=== PATIENT | female | born 1940 | race Caucasian/White ===

== ENCOUNTER → 2018-03-24 13:37 | Outpatient (CLI) | payer MEDICARE ==
[2013-02-12 08:31] VITALS: BMI 20.9
== END | disposition home or self-care (01) ==
LOC: D.RAD 13:37
DX: J44.9 Chronic obstructive pulmonary disease, unspecified (principal)

== ENCOUNTER → 2018-07-28 10:36 | Outpatient (CLI) | payer OTHER, MEDICAID ==
[2013-02-12 08:31] VITALS: BMI 20.9
== END | disposition home or self-care (01) ==
LOC: D.RAD 10:36
DX: R07.81 Pleurodynia (principal); V89.2XXA Person injured in unspecified motor-vehicle accident, traffic, initial encounter

== ENCOUNTER → 2018-09-07 14:59 | Outpatient (CLI) | payer OTHER, MEDICAID ==
[2013-02-12 08:31] VITALS: BMI 20.9
== END | disposition home or self-care (01) ==
LOC: D.CT 08-31 13:00
DX: R63.4 Abnormal weight loss (principal)

== ENCOUNTER → 2018-11-28 10:56 | Outpatient (CLI) | payer OTHER, MEDICAID ==
[2013-02-12 08:31] VITALS: BMI 20.9
== END | disposition home or self-care (01) ==
LOC: D.CT 11-24 14:00
DX: I65.23 Occlusion and stenosis of bilateral carotid arteries (principal)

== ENCOUNTER 2019-02-10 21:10 | Observation (INO) | payer OTHER, MEDICAID ==
[~2019-02-10] VITALS: Ht 157.5 cm; Wt 45.0 kg
[2019-02-10 21:23] VITALS: BP 123/68
[2019-02-10 21:39] LABS: BASOPHILS 0.2 % (0-2); EOSINOPHILS 1.2 % (0-7); HEMOGLOBIN 12.9 g/dL (12-16); IMMATURE GRANULOCYTES 0.5 % (0-5); LYMPHOCYTES 14.2 % (15-50); MCH 30.2 pg (26.0-34.0); MCHC 33.9 g/dL (31.0-37.0); MEAN PLATELET VOLUME 9.7 fL (7.4-10.4); MONOCYTES 7.4 % (2-11); NEUTROPHILS 76.5 % (40-80); PLATELET COUNT 234 10x3/uL (130-400); RBC 4.27 10x6/uL (4.00-5.40); RDW 12.8 % (11.5-14.5); WBC 10.4 10x3/uL (4.8-10.8)
[2019-02-10 21:44] LABS: APTT 27.5 SECONDS (22.8-39.4); INR 1.07 (0.85-1.17); PROTIME 13.4 SECONDS (11.6-15.0)
[2019-02-10 21:52] LABS: ALBUMIN 3.5 g/dL (3.4-5.0); ALKALINE PHOSPHATASE 106 U/L (46-116); ALT (SGPT) 14 U/L (10-68); BILIRUBIN - TOTAL 0.42 mg/dL (0.2-1.3); CALC OSMOLALITY 267 mosm/kg (275-300); CALCIUM 9.7 mg/dL (8.5-10.1); CARBON DIOXIDE 27.4 mmol/L (21.0-32.0); CHLORIDE - SERUM 100 mmol/L (98-107); CREATININE - SERUM 0.7 mg/dL (0.6-1.3); POTASSIUM - SERUM 3.6 mmol/L (3.5-5.1); PROTEIN - SERUM 6.6 g/dL (6.4-8.2); SODIUM 135 mmol/L (136-145); UREA NITROGEN 12 mg/dL (7-18); eGFR NON AFRICAN AMERICAN 86 mL/min (90-120)
[2019-02-10 21:57] LABS: GLUCOSE 56 mg/dL (74-106)
[2019-02-10 22:04] LABS: CKMB 4.3 U/L (0.0-3.6); CREATINE KINASE 165 UL (21-215); MAGNESIUM - SERUM 2.1 mg/dL (1.8-2.4)
[2019-02-10 22:05] LABS: TROPONIN-I < 0.017 ng/mL (0.000-0.060)
--- NOTE | 2019-02-11 00:04 | NUR ---
FSBS 114
[2019-02-11] MEDS ORDERED: BAYER CHEWABLE81 MG PO (01:03)
[2019-02-11 01:18] VITALS: BP 150/70; Ht 157.5 cm; Wt 45.0 kg
--- NOTE | 2019-02-11 01:25 | NUR ---
RECIEVED REPORT FROM PAULO MENA IN ER. ARRIVED TO FLOOR AT 0020 IN W/C ACCOMPANIED BY STAFF. TRANSFERED SELF TO BED. ALERT AND ORIENTED X4. UP AD ANGELINA TO B/R. C/O BEING VERY TIRED. DENIES ANY PAIN OR NEEDS. TELEMETRY IN PLACE. COURTNEY AGUAYOO.
[2019-02-11 03:33] LABS: BASOPHILS 0.3 % (0-2); EOSINOPHILS 1.7 % (0-7); HEMATOCRIT 36.5 % (36.0-48.0); HEMOGLOBIN 12.4 g/dL (12-16); IMMATURE GRANULOCYTES 0.5 % (0-5); LYMPHOCYTES 20.5 % (15-50); MCV 88.2 fL (80.0-100.0); MEAN PLATELET VOLUME 9.9 fL (7.4-10.4); MONOCYTES 6.8 % (2-11); NEUTROPHILS 70.2 % (40-80); PLATELET COUNT 218 10x3/uL (130-400); RBC 4.14 10x6/uL (4.00-5.40); RDW 12.7 % (11.5-14.5); WBC 7.8 10x3/uL (4.8-10.8)
[2019-02-11 03:56] LABS: ALKALINE PHOSPHATASE 85 U/L (46-116); ALT (SGPT) 13 U/L (10-68); CALC OSMOLALITY 274 mosm/kg (275-300); CALCIUM 9.5 mg/dL (8.5-10.1); CARBON DIOXIDE 24.2 mmol/L (21.0-32.0); CHLORIDE - SERUM 105 mmol/L (98-107); CKMB 3.2 U/L (0.0-3.6); CREATINE KINASE 114 UL (21-215); CREATININE - SERUM 0.6 mg/dL (0.6-1.3); POTASSIUM - SERUM 3.7 mmol/L (3.5-5.1); PROTEIN - SERUM 5.9 g/dL (6.4-8.2); SODIUM 138 mmol/L (136-145); TROPONIN-I 0.021 ng/mL (0.000-0.060); UREA NITROGEN 9 mg/dL (7-18); eGFR NON AFRICAN AMERICAN > 90 mL/min (90-120)
[2019-02-11 03:59] LABS: GLUCOSE 95 mg/dL (74-106)
[2019-02-11 05:56] VITALS: BP 133/65
--- NOTE | 2019-02-11 07:30 | NUR ---
RECEIVED PT AMBULATING IN [place]WAYS LOOKING FOR A PHONE BOOK WANTING TO GO HOME ASSISTED BACK TO ROOM GOING TO WAIT FOR DAUGHTER TO COME SEE HER
[2019-02-11 09:13] VITALS: BP 143/48
[2019-02-11] MEDS ORDERED: COZAAR50 MG (10:08)
[2019-02-11] MEDS ORDERED: SYMBICORT 16010.2 GM INH (10:09)
[2019-02-11] MEDS ORDERED: MELATONIN 3 MG1 TAB (10:10)
[2019-02-11] MEDS ORDERED: ADVIL200 MG PO (10:10)
[2019-02-11] MEDS ORDERED: PROBIOTIC250 MG PO (10:11)
[2019-02-11] MEDS ORDERED: NITROSTAT0.4 MG SL (10:17)
--- NOTE | 2019-02-11 12:00 | NUR ---
REVIEWED DISCHARGE INSTRUCTIONSWITH PT AND DAUGHTERS ALL STATE UNDERSTANDING COPY GIVEN DCD SALINE LOCK LAC WITH IV CATHETER INTACT SITE FREE OF REDNESS OR EDEMA NOTED PT DCD TO HOME LEFT UNIT VIA W/C WITH ALL PERSONAL BELONGINGS IN STABLE CONDITION
--- NOTE | 2019-02-12 09:21 | MORECARE ---
CASE MANAGEMENT DISCHARGE SUMMARY PATIENT: GIDEON SHOEMAKER UNIT: [id number] ADM DATE: 02/10/19 AGE: 78 : 40 SEX: F ROOM/BED: D.2115 AUTHOR: GIOVANNA HAMMER PHYSICIAN: REFERRING PHYSICIAN: FABIOLA CARABALLO MD DATE OF SERVICE: 02/12/19 Discharge Plan Patient Name: GIDEON SHOEMAKER Facility: [facility]:[place] : 1940 Planned Disposition: Home Anticipated Discharge Date: 02/11/19 Discharge Date: 02/11/2019 Expected LOS: 1 Initial Reviewer: [email or web address] Initial Review Date: 02/12/2019 Generated: 02/12/19 10:21 am Patient Name: GIDEON SHOEMAKER Page [id number] at 0921 All edits/amendments must be made on the electronic document DICTATION DATE: 02/12/19919 FARM OWNER OPERATOR: JADON 02/12/19919 RPT#: [id number] DC DATE:02/11/19 STATUS: DIS IN [facility] [address] [place] [address] END OF REPORT
--- NOTE | 2019-02-13 13:13 | DS ---
PATIENT:GIDEON SHOEMAKER :40 MEDICAL RECORD: [id number] DISCHARGE SUMMARY ADMISSION DATE: 02/10/19 DISCHARGE DATE: 02/11/19 PROBLEM LIST: 1. Angina. BRIEF HISTORY AND HOSPITAL COURSE: The patient had an episode of angina under stress. She has had no recent increase in her anginal pattern. Unfortunately was out of nitroglycerin. Serial ECGs and enzymes showed no evidence for acute ischemia and was discharged home with her usual medications. Followup will be with a regular scheduled clinic office visit. TRANSINT:[id number] Voice Confirmation ID: [id number] DOCUMENT ID: [id number] FABIOLA CARABALLO MD at 1313 CC: [id number] DICTATION DATE: 02/11/19919 SURGICAL ASST: 02/12/19 0042 DIS IN 02/11/19 [id number] [place] [address]
--- NOTE | 2019-02-13 13:13 | HP ---
PATIENT: GIDEON SHOEMAKER MEDICAL RECORD: [id number] ACCOUNT: [id number] LOCATION:[address] : 40 ADMISSION DATE: 02/10/19 PCP: No PCP HISTORY AND PHYSICAL EXAMINATION HISTORY OF PRESENT ILLNESS: A 78-year-old female followed in our office with a history of coronary artery disease. She describes a very chronic stable anginal pattern. Yesterday was trying to change her medications over from [facility] to a local pharmacy. This was not easily accomplished and had onset of angina. Unfortunately, one of the medications she was attempting to be transferred was her nitroglycerin, she had none and presented to the ER. Enzymes are negative. She reports no increase in her anginal pattern over the past several months actually. Able to usually do light housework, heavy housework occasionally requires nitroglycerin. PAST MEDICAL HISTORY: Includes history of coronary artery disease as described above and dyslipidemia. ALLERGIES: AMOXICILLIN. MEDICATIONS: Aspirin 81 mg p.o. daily. SOCIAL HISTORY: Nonsmoker, nondrinker. Lives by self. Easily takes care of all her ADLs. PHYSICAL EXAMINATION: GENERAL: Pleasant female, appears stated age, in no acute distress. VITAL SIGNS: Blood pressure 143/48, pulse 83 and regular. HEENT: Normocephalic, atraumatic. NECK: No JVD or bruit. HEART: Regular. LUNGS: Lung baires clear. ABDOMEN: Soft, nontender. EXTREMITIES: Pulses 2+. No edema. NEUROLOGIC: Grossly intact. DIAGNOSTIC DATA: ECG without acute change. IMPRESSION: We will plan for serial cardiac enzymes. Further recommendations based on the above. TRANSINT:[id number] Voice Confirmation ID: [id number] DOCUMENT ID: [id number] FABIOLA CARABALLO MD at 1313 CC: [id number] DICTATION DATE: 02/11/19918 CONTROL INTEGRATION ENGINEER: 02/11/19 1413 DIS IN 02/11/19 [address] [place] [address]
== END 2019-02-11 12:00 | disposition home or self-care (01) ==
LOC: D.ER 21:10 → OBSVTIME 23:27 → D.M2 23:27
PROVIDERS: Family Medicine; ADMIT Internal Medicine Interventional Cardiology; ATTEND Internal Medicine Interventional Cardiology
DX: I25.119 Atherosclerotic heart disease of native coronary artery with unspecified angina pectoris (principal); E78.5 Hyperlipidemia, unspecified

== ENCOUNTER 2019-03-21 10:53 | Outpatient (CLI) | payer OTHER, MEDICAID ==
[~2019-03-21] VITALS: Ht 157.5 cm; Wt 45.0 kg
--- NOTE | ~2019-03-21 | HEMODYNAMI ---
PATIENT:GIDEON SHOEMAKER MEDICAL RECORD: [id number] : 40 LOCATION:[facility] ADMISSION DATE: 03/21/19 Generatedon:03/21/201914:30 Patient name: GIDEON SHOEMAKER Patient #: [id number] SSN: : 1940 Date of study: 03/21/2019 Page: Of Hemodynamic Procedure Report Patient Data Patient Demographics Procedure consent was obtained First Name: GIDEON Gender: Female Last Name: SAHARA : 1940 Middle Initial: M Age: 78 year(s) Patient #: [id number] Race: Unknown Additional ID: [id number] Contact details Address: [address] [place] [address] State: [place] City: [facility] Zip code: [address] Past Medical History Allergies: No known allergies Admission Admission Data Admission Date: 03/21/2019 Admission Time: 10:53 Procedure Procedure Types Cath Procedure Diagnostic Procedure LHC LHC w/Coronaries w/Grafts Sedation Charges Moderate Sedation up to 45 minutes PCI Procedure Coronary Stent Coronary Stent Initial Procedure Description Procedure Date Procedure Date: 03/21/2019 Procedure Start Time: 13:36 Procedure End Time: 14:29 Procedure Staff Name Function Dejon Cardona MD Performing Physician Unique Mcmullen RT Monitor Faye Albarran RT Scrub Sylvester Mcintosh RN Nurse Procedure Data Cath Procedure Fluoroscopy Diagnostic fluoroscopy Total fluoroscopy Time: time: 10.2 min 10.2 min Diagnostic fluoroscopy Total fluoroscopy dose: 378 dose: 378 mGy mGy Contrast Material Contrast Material Type Amount (ml) Isovue 300 118 Entry Location Entry Primary Successful Side Size Upsize Upsize Entry Closure Succes sful Closure Location (Fr) 1 (Fr) 2 (Fr) Remarks Device Remarks Femoral Right 5 Fr Exoseal artery Femoral Left 5 Fr 6 Fr 6 Fr artery Long Short Estimated blood loss: 10 ml Diagnostic catheters Device Type Used For End Catheter Placement MULTIPACK 3DRC 5Fr Procedure catheter MULTIPACK JL 4.0 5Fr Left Coronary catheter Angiography MULTIPACK 3DRC 5Fr Right Coronary catheter Angiography MULTIPACK 3DRC 5Fr Internal mammary catheter arteriography MULTIPACK Pigtail 5 Fr LV Angiography catheter Procedure Complications No complications Procedure Medications Medication Administration Route Dosage Oxygen 6 l/min Lidocaine 2% added to field 20 Heparin Flush Bag added to field 2 bags (1000units/500ml NS) 0.9% NaCl I.V. 100 ml/hr Versed I.V. 1 mg Fentanyl I.V. 50 mcg Versed I.V. 1 mg Fentanyl I.V. 50 mcg Fentanyl I.V. 50 mcg Heparin Bolus I.V. 4000 units Integrilin (Bolus I.V. 4 ml 2mg/ml) Lopressor I.V. 5 mg Fentanyl I.V. 50 mcg Plavix P.O. 600 mg Hemodynamics Rest Heart Rate: 71 (bpm) Pressure Samples Time Site Value (mmHg) Purpose Heart Use Rate(bpm) 13:56 LV 210/132,8 EDP 118 Gradients Valve Time Site Site Mean SEP/DFP Peak To Heart Use 1 2 (mmHg) (sec/min) Peak Rate (mmHg) (bpm) Aortic 13:57 LV AO 78 Snapshots Pre Cath Intra NCS Post Cath Vital Signs Time Heart Resp SPO2 etCO2 NIBP (mmHg) Rhythm Pain Sedation Rate (ipm) (%) (mmHg) Status Level (bpm) 13:30:41 69 19 99 0 191/80(141) NSR 0 (11) 10(A) , No pain 13:35:07 72 14 98 0 178/82(140) NSR 0 (11) 10(A) , No pain 13:39:29 70 19 100 0 169/78(125) NSR 0 (11) 10(A) , No pain 13:43:49 74 14 95 0 171/85(129) NSR 0 (11) 9(A) , No pain 13:48:14 72 30 100 0 175/79(131) NSR 0 (11) 9(A) , No pain 13:52:36 71 19 100 0 175/79(135) NSR 0 (11) 9(A) , No pain 13:57:00 74 14 100 0 146/77(115) NSR 0 (11) 9(A) , No pain 14:02:17 71 18 100 0 155/63(111) NSR 0 (11) 9(A) , No pain 14:06:30 92 12 99 0 146/101(137) NSR 0 (11) 9(A) , No pain 14:10:39 80 15 100 0 165/108(149) NSR 0 (11) 9(A) , No pain 14:15:57 66 18 99 0 182/78(138) NSR 0 (11) 10(A) , No pain 14:20:23 66 14 98 0 169/78(126) NSR 0 (11) 10(A) , No pain 14:24:45 65 10 0 164/78(139) NSR 0 (11) 10(A) , No pain 14:29:09 63 21 0 177/75(140) NSR 0 (11) 10(A) , No pain Medications Time Medication Route Dose Verified Delivered Reason Notes Effectiveness by by 13:34:05 Oxygen simple 6 Dejon Buffie used for pt mask l/min [facility] Ryan Mcintosh RN procedure requested MD mask instead of cannula 13:34:46 Lidocaine 2% added 20ml Dejon Dejon for local to vial [facility] anesthetic field MD GORDON 13:34:57 Heparin Flush added 2 Dejon Dejon used for Bag to bags [facility] procedure (1000units/500ml field MD GORDON NS) 13:35:03 0.9% NaCl I.V. 100 Dejon Buffie Per physician ml/hr [facility] Ryan Mcintosh RN, MD 13:35:16 Versed I.V. 1 mg Dejon Buffie for sedation [facility] Ryan Mcintosh RN, MD 13:35:23 Fentanyl I.V. 50 Dejon Buffie for sedation mcg [facility] Ryan Mcintosh RN, MD 13:45:20 Versed I.V. 1 mg Dejon Buffie for sedation [facility] Ryan Mcintosh RN, MD 13:45:24 Fentanyl I.V. 50 Dejon Buffie for sedation mcg [facility] Ryan Mcintosh RN, MD 13:51:33 Fentanyl I.V. 50 Dejon Buffie for sedation mcg [facility] Ryan Mcintosh RN, MD 13:59:20 Heparin Bolus I.V. 4000 Dejon Buffie for verifi ed units [facility] Ryan Mcintosh RN anticoagulation with dr MD morales 13:59:28 Integrilin I.V. 4 ml Dejon Buffie for wasted 6 (Bolus 2mg/ml) St Ryan Mcintosh RN antiplatelet ml of MD therapy vial 14:04:38 Fentanyl I.V. 50 Dejon Buffie for sedation [facility] St Ryan Mcintosh RN, MD 14:08:38 Lopressor I.V. 5 mg Dejon Phan Per physician [facility] Ryan Mcintosh RN, MD 14:19:18 Plavix P.O. 600 Dejon [address]an for mg [facility] Ryan Mcintosh RN antiplatelet MD therapy Procedure Log Time Note 13:12:06 Sylvester Mcintosh RN sent for patient. Start room use. 13:12:07 Time tracking: Regular hours (M-F 7:00 - 5:00) 13:12:14 Plan of Care:Hemodynamics will remain stable., Cardiac rhythm will remain stable., Comfort level will be maintained., Respiratory function will remain adequate., Patient/ family verbilizes understanding of procedure., Procedure tolerated without complication., Recovers from procedure without complications.. 13:19:15 Patient received from Pre/Post Procedure Room to CCL 1 Alert and oriented. Tansferred to table in Supine position. 13:19:16 Warm blankets applied, and muriel hugger turned on for patient comfort. 13:19:17 Correct patient and procedure confirmed by team. 13:19:18 Signed procedure consent form obtained from patient. 13:19:18 ECG and BP/O2 sat monitors applied to patient. 13:19:19 Full Disclosure recording started 13:28:28 Vital chart was started 13:28:34 Rhythm: sinus rhythm 13:29:12 H&P Date Dictated: 03/05/2019 Within 30 days and on chart., H&P Addendum completed by physician on day of procedure. (MUST COMPLETE FOR ALL OUTPATIENTS). 13:29:14 Pre-procedure instructions explained to patient. 13:29:14 Pre-op teaching completed and patient verbalized understanding. 13:29:16 Family in patients room. 13:29:21 Patient NPO since Midnight. 13:29:28 Patient allergic to No known allergies 13:29:30 Is the patient allergic to Iodine/contrast media? No. 13:29:37 Patient diabetic? No. 13:29:43 Previous problem with sedation/anesthesia? No ? 13:29:44 Snore? No 13:29:45 Sleep apnea? No 13:29:47 Deviated septum? No 13:29:47 Opens mouth fully? Yes 13:29:48 Sticks out tongue? Yes 13:29:52 Airway obstruction? Yes COPD 13:29:55 Dentures? Yes In 13:29:59 Pre procedure: right dorsailis pedis pulse 2+ Normal; easily identifiable; not easily obliterated 13:30:01 Patient pain scale 0/10 ?. 13:30:08 IV patent on arrival in right forearm with 0.9% NaCl at [facility]. 13:30:10 Lab results completed and on chart. 13:30:13 Right groin area was prepped with chlora-prep and draped in sterile fashion 13:30:14 Alarms reviewed by R. N. 13:30:14 Sharps counted by scrub and verified by R.N. 13:30:17 Use device set Femoral Dx 13:30:18 ACIST Syringe (36191) opened to sterile field. 13:30:19 Bag Decanter (2002S) opened to sterile field. 13:30:19 Medline Cath Pack ([id number]) opened to sterile field. 13:30:20 DIAGNOSTIC WIRE .035 260cm J wire (552716) opened to sterile field. 13:30:21 ACIST Hand Control (34920) opened to sterile field. 13:30:22 ACIST Manifold (20768) opened to sterile field. 13:30:22 DIAGNOSTIC Multipack 5Fr catheter set ([id number]) opened to sterile field. 13:30:23 Tegaderm 4 x 4 (1626W) opened to sterile field. 13:30:24 SHEATH 5FR [place] (KEP481) opened to sterile field. 13:30:29 Final Timeout: patient, procedure, and site verified with staff and physician. All members of the team are in agreement. 13:30:31 Right groin site verified by team. 13:30:34 Maximum allowable Isovue 300 dose 300ml. Physician notified. (300ml for normal creatinines. For patients with creatinine of 1.7 or higher multiply weight(kg) x 5 divided by creatinine.) 13:30:38 Fire Safety Assessment: A--An alcohol-based skin anteseptic being used preoperatively., C--Open oxygen or nitrous oxide is being used., D--An ESU, laser, or fiber-optic light is being used. 13:30:41 Physical assessment completed. ASA score P 2 - A patient with mild systemic disease as per Dejon Cardona MD. 13:30:44 Sedation plan: IV Moderate Sedation Medication:Versed, Fentanyl 13:34:05 Oxygen 6 l/min simple mask was administered by Sylvester Mcintosh RN; used for procedure; pt requested mask instead of cannula 13:34:15 Zero performed for pressure channel P1 13:34:22 Baseline sample Acquired. 13:34:46 Lidocaine 2% 20ml vial added to field was administered by Dejon Cardona MD; for local anesthetic; 13:34:57 Heparin Flush Bag (1000units/500ml NS) 2 bags added to field was administered by Dejon Cardona MD; used for procedure; 13:35:03 0.9% NaCl 100 ml/hr I.V. was administered by Sylvester Mcintosh RN; Per physician; 13:35:16 Versed 1 mg I.V. was administered by Sylvester Mcintosh RN; for sedation; 13:35:23 Fentanyl 50 mcg I.V. was administered by Sylvester Mcintosh RN; for sedation; 13:36:13 Procedure started. 13:36:16 Local anesthetic to right femoral artery with Lidocaine 2% by Dejon Cardona MD.INITIAL ACCESS ONLY 13:36:57 A 5 Fr sheath was inserted into the Right Femoral artery 13:37:44 GLIDE WIRE Super Stiff Angled 260cm (TL3058) opened to sterile field. 13:38:17 exchange glide wire advanced. 13:38:29 A MULTIPACK 3DRC 5Fr catheter was advanced over the wire and used for Procedure. CATHETER REMOVED; UNABLE TO ADVANCE PAST RT ILIAC 13:40:25 Wire removed. 13:41:14 Left groin area was prepped with chlora-prep and draped in sterile fashion 13:41:19 Pre procedure: left dorsailis pedis pulse 2+ Normal; easily identifiable; not easily obliterated 13:43:06 Local anesthetic to left femerol artery with Lidocaine 2% by Dejon Cardona MD.ADDITIONAL ACCESS 13:45:20 Versed 1 mg I.V. was administered by Sylvester Mcintosh RN; for sedation; 13:45:24 Fentanyl 50 mcg I.V. was administered by Sylvester Mcintosh RN; for sedation; 13:46:49 A 5 Fr sheath was inserted into the Left Femoral artery 13:48:21 A MULTIPACK JL 4.0 5Fr catheter was advanced over the wire and used for Left Coronary Angiography. 13:49:42 Catheter removed. 13:50:45 A MULTIPACK 3DRC 5Fr catheter was advanced over the wire and used for Right Coronary Angiography. 13:51:33 Fentanyl 50 mcg I.V. was administered by Sylvester Mcintosh RN; for sedation; 13:52:40 A MULTIPACK 3DRC 5Fr catheter was advanced over the wire and used for Internal mammary arteriography. TO LAD--OCCLUDED 13:54:20 Catheter removed. 13:55:00 A MULTIPACK Pigtail 5 Fr catheter was advanced over the wire and used for LV Angiography. 13:56:28 LV gram done using CAMPOS 13:56:33 Injector settings: Ml/sec: 5, Volume: 15, 13:56:38 LV hemodynamics recorded. 13:56:55 EF : 50 % 13:57:21 Catheter removed. 13:57:31 Sheath upsized to a 6 Fr Long. 13:57:34 Use device set THORNTON PCI 13:57:37 SHEATH 6FR [place] (FWN630) opened to sterile field. 13:57:43 INFLATOR Merit BasixCompak (TV0162) opened to sterile field. 13:57:47 GUIDE 6FR XBLAD 3.5 catheter ([id number]) opened to sterile field. 13:57:49 WHISPER 300cm guide wire ([id number]) opened to sterile field. 13:59:20 Heparin Bolus 4000 units I.V. was administered by Sylvester Mcintosh RN; for anticoagulation; verified with dr morales 13:59:28 Integrilin (Bolus 2mg/ml) 4 ml I.V. was administered by Sylvester Mcintosh RN; for antiplatelet therapy; wasted 6 ml of vial 14:00:17 6 Fr XBLAD 3.5 guide catheter was inserted over the wire 14:03:39 WHISPER wire advanced. 14:04:38 Fentanyl 50 mcg I.V. was administered by Sylvester Mcintosh RN; for sedation; 14:04:48 Inflate balloon Inflation number: 1 A EMERGE OTW 2.5 x 12 balloon ([id number]) was prepped and advanced across the LMCA, then inflated to 14 BINH for 0:24 (min:sec). 14:05:26 Inflation number: 2 The EMERGE OTW 2.5 x 12 balloon ([id number]) was reinflated across the LMCA, to 14 BINH for 0:25 (min:sec). 14:06:02 Inflation number: 3 The EMERGE OTW 2.5 x 12 balloon ([id number]) was reinflated across the LMCA, to 14 BINH for 0:22 (min:sec). 14:06:41 Balloon removed over the wire. 14:08:38 Lopressor 5 mg I.V. was administered by Sylvester Mcintosh RN; Per physician; 14:10:02 Place stent Inflation Number: 4 A COBRA RX 3.0 X 15 Stent was prepped and advanced across the LMCA. The stent was deployed at 14 BINH for 0:30 (min:sec). 14:10:41 Stent catheter was removed intact over wire. 14:10:43 Wire removed. 14:10:44 Guide catheter removed. 14:10:48 EXOSEAL 6Fr (EX600) opened to sterile field. 14:10:59 Sheath upsized to a 6 Fr Short. 14:11:39 Sheath removed intact; hemostasis achieved with Exoseal to the Right Femoral artery. 14:11:41 Procedure ended.(Physican Out) 14:11:48 EXOSEAL 5Fr (EX500) opened to sterile field. 14:19:18 Plavix 600 mg P.O. was administered by Sylvesetr Mcintosh RN; for antiplatelet therapy; 14:27:05 Fluoroscopy time 10.20 minutes. 14:27:09 Flurop Dose total: 378 14:27:09 Fluoroscopy dose: 378 mGy 14:27:13 Contrast amount:Isovue 300 118ml. 14:27:16 Sharps counted by scrub and verified by R.N. 14:27:18 Insertion/operative site no bleeding no hematoma. 14:27:21 Post-op/insertion site Right Femoral artery dressed using a 4 x 4 and Tegaderm. 14:27:27 Post right femoral artery:stable, clean and dry 14:27:34 Post Procedure Pulses reassessed and unchanged 14:27:36 Post-procedure physical assessment completed. ASA score P 2 - A patient with mild systemic disease as per Dejon Cardona MD. 14:27:38 Post procedure rhythm: unchanged. 14:27:42 Post-op/insertion site Left Femoral artery dressed using a 4 x 4 and Tegaderm. 14:27:45 Post left femerol artery:stable, clean and dry 14:27:52 Estimated blood loss: 10 ml 14:27:54 Post procedure instruction explained to patient.Patient verbalizes understanding. 14:27:54 Patient needs reinforcement of post procedure teaching. 14:27:55 Procedure and supply charges have been captured, reviewed, submitted and are correct. 14:28:02 Procedure Complication : No complications 14:28:04 See physician's report for complete and final results. 14:28:27 Report given to Pre/Post Procedure Room. 14:28:29 Patient transfered to Pre/Post Procedure Room with Stretcher. 14:28:53 Procedure type changed to Cath procedure, Diagnostic procedure, LHC, LHC w/Coronaries w/Grafts, Sedation Charges, Moderate Sedation up to 45 minutes, PCI procedure, Coronary Stent, Coronary Stent Initial 14:29:32 Vital chart was stopped 14:29:35 Procedure ended. 14:29:35 Full Disclosure recording stopped 14:29:55 End room use (Document Last) Intervention Summary Intervention Notes Time ActionType Lesion and Equipment Action# Pressure Duration Attributes Used 14:04:48 Inflate LMCA EMERGE OTW 1 14 00:24 balloon 2.5 x 12 balloon ([id number]) 14:05:26 Reinflate LMCA EMERGE OTW 2 14 00:25 balloon 2.5 x 12 balloon ([id number]) 14:06:02 Reinflate LMCA EMERGE OTW 3 14 00:22 balloon 2.5 x 12 balloon ([id number]) 14:10:02 Place stent LMCA COBRA RX 3.0 4 14 00:30 X 15 Stent Device Usage Item Name Manufacture Quantity Catalog Number [facility] Minimal Lot# / Charge Number Stock Stock Serial# Code ACIST Syringe Acist 1 06600 463164 902776 213791 20 (27740) Medical Systems Inc Bag Decanter Microtek 1 622479 82294 604504 5 () Medical Inc. Medline Cath Medline 1 [id number] 879179 02869 475221 5 Pack ([id number]) DIAGNOSTIC [facility] [place] 1 005959 972266 666137 003150 30 WIRE .035 260cm J wire (351171) ACIST Hand Acist 1 81675 024146 720384 996401 5 Control Medical (93342) Systems Inc ACIST Manifold Acist 1 46156 428518 782970 022049 5 (32206) Medical Systems Inc DIAGNOSTIC Cardinal 1 OW5198 453718 04555 487390 30 Multipack 5Fr Health catheter set (QN4767) Tegaderm 4 x 4 3M 1 1626W 951590 134997 376787 5 (1626W) SHEATH 5FR Terumo 1 WIU584 803354 926180 891895 5 [place] (XCE305) GLIDE WIRE Terumo 1 KV0033 425835 366079 859582 5 Super Stiff Angled 260cm (HI1940) MULTIPACK 3DRC Cardinal 1 608213 5 5Fr catheter Health MULTIPACK JL Cardinal 1 872374 5 4.0 5Fr Health catheter MULTIPACK Cardinal 1 633644 5 Pigtail 5 Fr Health catheter SHEATH 6FR Terumo 1 OAJ422 598577 479163 554391 40 [place] (FQA021) INFLATOR Merit Merit 1 XB2325 913292 306804 639819 15 [facility] (ZG0506) GUIDE 6FR Cardinal 1 [id number] 465733 467859 315636 10 XBLAD 3.5 Health catheter (32175179) WHISPER 300cm Morse 1 [id number] 376472 862451 202029 5 guide wire Vascular ([id number]) EMERGE OTW 2.5 Lapwai 1 [id number] 839219 744704 036204 5 [id number] x 12 balloon Scientific ([id number]) COBRA RX 3.0 X Celonova 1 032-77-95987 697671 869833316 293254 3 [id number] 15 stent Biosciences ([id number]) EXOSEAL 6Fr Cardinal 1 EX600 261250 499566 004423 10 (EX600) Health EXOSEAL 5Fr Cardinal 1 EX500 041147 577992 530207 10 (EX500) Health Signature Audit [place] Stage Time Signature Unsigned Intra-Procedure 03/21/2019 Unique 2:30:12 PM Counts RT(R) Signatures Monitor : Unique Signature : Counts RT Date : Time : [facility] [address] [place] [address]
--- NOTE | ~2019-03-21 | OP ---
PATIENT NAME: GIDEON SHOEMAKER MEDICAL RECORD: [id number] :40 LOCATION:D.CAT ADMISSION DATE: SURGEON: FABIOLA CARABALLO MD DATE OF OPERATION: 03/21/2019 PROCEDURE: Left heart catheterization, selective coronary angiography, right femoral artery approach. CATHETERS: A 5-Comoran sheath, 5/4 left and right Katie, 5/4 pig. The procedure was well tolerated. The patient was returned to the hollis. Sheath was removed. I proceeded immediately to TOLL TESTBOARD WORKER and stenting of the left main. FINDINGS: Left ventriculography in 30-degree CAMPOS view: Normal wall motion. Normal systolic function. CORONARY ANATOMY: LEFT MAIN: Left main tapers to about 90% stenosis. LAD: LAD is free of disease. CIRCUMFLEX: It has about 80% stenosis that is well grafted. RIGHT CORONARY ARTERY: Totally occluded. Fills via left to right collaterals. SAPHENOUS VEIN GRAFT TO CIRCUMFLEX: Widely patent and free of disease with a runoff distally. CUNHA TO LAD: Atretic. IMPRESSION: intervention to left main momentarily. DESCRIPTION OF PROCEDURE: A 5-Comoran sheath was exchanged for a long 6-Comoran sheath. XB LAD guiding catheter provided excellent guide catheter support followed by 300 cm Whisper wire was placed across 90% stenosis of left main down this portion of the vessel. Predeployment balloon used was a 2.5 Webb up to 14 atmospheres. The stent deployed was a 3.0 x 15 mm Cobra stent. Final angiography shows no residual. ANURADHA flow was 3 throughout the procedure. Heparin and Integrilin were used during the case. Plavix was loaded in the lab. Sheath was closed with ExoSeal device. TRANSINT:[id number] Voice Confirmation ID: [id number] DOCUMENT ID: [id number] FABIOLA CARABALLO MD CC: [id number] DICTATION DATE: 03/21/19 142 BAR MANAGER: 03/21/19 1824 DEP CLI 03/21/19 [facility] [address] [place] [address]
[~2019-03-21 10:53] MED LIST: ADVIL200 MG PO; BAYER CHEWABLE81 MG PO; COZAAR50 MG; MELATONIN 3 MG1 TAB; NITROSTAT0.4 MG SL; PROBIOTIC250 MG PO; SYMBICORT 16010.2 GM INH
[2019-03-21] MEDS ORDERED: ALBUTEROL SULF8.5 GM INH (11:12)
[2019-03-21 11:22] VITALS: BP 180/74; Ht 157.5 cm; Wt 45.0 kg
[2019-03-21 11:39] LABS: BASOPHILS 0.2 % (0-2); EOSINOPHILS 0.8 % (0-7); HEMATOCRIT 41.1 % (36.0-48.0); HEMOGLOBIN 14.2 g/dL (12-16); IMMATURE GRANULOCYTES 0.3 % (0-5); MCH 30.7 pg (26.0-34.0); MCHC 34.5 g/dL (31.0-37.0); MEAN PLATELET VOLUME 9.7 fL (7.4-10.4); MONOCYTES 8.1 % (2-11); NEUTROPHILS 72.6 % (40-80); PLATELET COUNT 242 10x3/uL (130-400); RBC 4.62 10x6/uL (4.00-5.40); RDW 12.4 % (11.5-14.5); WBC 6.1 10x3/uL (4.8-10.8)
[2019-03-21 12:22] LABS: CALC OSMOLALITY 263 mosm/kg (275-300); CARBON DIOXIDE 23.2 mmol/L (21.0-32.0); CHLORIDE - SERUM 100 mmol/L (98-107); CREATININE - SERUM 0.7 mg/dL (0.6-1.3); GLUCOSE 96 mg/dL (74-106); POTASSIUM - SERUM 4.2 mmol/L (3.5-5.1); SODIUM 133 mmol/L (136-145); UREA NITROGEN 7 mg/dL (7-18); eGFR NON AFRICAN AMERICAN 86 mL/min (90-120)
[2019-03-21] MEDS ORDERED: PLAVIX75 MG PO (14:30)
--- NOTE | 2019-03-21 14:52 | NUR ---
RECIEVED TO ROOM VIA STRETCHER FROM CUSTOMER CARE ASSISTANT WITH BILATERAL GROINS CDI NO BLEEDING OR HEMATOMA. PATIENT CONNECTED TO MONITOR FOR OBSERVATION WITH HR67 BP 180/78. PATIENT COMPLAINS OF NAUSEA WITH 4 MG ZOFRAN GIVEN IV.
--- NOTE | 2019-03-21 15:01 | NUR ---
BILATERAL GROINS REMAIN CDI WITH HR 62 BP 180/78 NAUSEA IS DENIED INSTRUCTED PATIENT TO KEEP HEAD FLAT ON PILLOW WITH LEGS STRAIGHT
--- NOTE | 2019-03-21 15:13 | NUR ---
PATIENT CONTINUES TO REST WITH BILATERAL GROINS CDI NO BLEEDING. CHEST PAIN AND NAUSEA ARE DENIED. FAMILY IS PRESENT AT BEDSIDE
--- NOTE | 2019-03-21 15:20 | NUR ---
PATIENT VOIDS 300 CC CLEAR YELLOW URINE TO COLLECTION SHARLA CARE PROVIDED BILATERAL GROINS ARE CDI
--- NOTE | 2019-03-21 15:31 | NUR ---
CHEST PAIN IS DENIED. PATIENT TOLERATING SIPS OF COFFEE WITH ASSISTANCE FROM DAUGHTER. BILATERAL GROINS ARE CDI
--- NOTE | 2019-03-21 15:49 | NUR ---
BILATERAL GROINS REMAINS CDI AND SOFT TO PALPATE. WITH CHEST PAIN DENIED.
--- NOTE | 2019-03-21 16:30 | NUR ---
BILATERAL GROIN DRESSINGS C/D/I. NO S/S OF HEMATOMA NOTED. PT IN SUPINE POSITION. VSS. FAMILY AT BEDSIDE. CALL LIGHT WITHIN REACH. DENIES NAUSEA.
--- NOTE | 2019-03-21 17:02 | NUR ---
PT'S HEAD OF BED INC TO 30 DEGREES. TOLERATED WELL. BILATERAL GROIN INCISION DRESSINGS C/D/I. NO S/S OF HEMATOMA NOTED. PT SET UP WITH SANDWICH TRAY AND DRINK. DENIES NAUSEA.
--- NOTE | 2019-03-21 17:17 | NUR ---
RIGHT AC PIV D/C'D WITH CATH TIP INTACT. PT TOLERATED WELL. DID HAS SMALL SWELLING AT INSERTION SITE LOOKS TO BE SALINE INFILTRATION. NO REDNESS. PT INSTRUCTED TO PLACE WARM COMPRESS TO ARM IF IT BECOMES PAINFUL AT HOME. DENIES PAIN AT THIS TIME.
--- NOTE | 2019-03-21 17:19 | NUR ---
PT AMUBLATED TO RESTROOM WITH ASSIST FROM HER DAUGHTER. VOIDED WITHOUT DIFFICULTY. AMBULATED BACK TO ROOM.
--- NOTE | 2019-03-21 17:40 | NUR ---
DISCUSSED DISCHARGE INSTRUCTIONS WITH PT AND PT'S FAMILY. THEY VOICED UNDERSTANDING. BILATERAL GROIN SITES C/D/I. NO S/S OF HEMATOMA NOTED.
--- NOTE | 2019-03-21 17:50 | NUR ---
PT TAKEN OUT TO VEHICLE BY WHEELCHAIR. NO S/S OF DISTRESS NOTED. ALL BELONGINGS AND PAPERWORK IN HAND.
== END 2019-03-21 17:50 | disposition home or self-care (01) ==
LOC: D.CATH 10:53
PROVIDERS: ATTEND Internal Medicine Interventional Cardiology
DX: I25.119 Atherosclerotic heart disease of native coronary artery with unspecified angina pectoris (principal); I25.719 Atherosclerosis of autologous vein coronary artery bypass graft(s) with unspecified angina pectoris; I25.82 Chronic total occlusion of coronary artery; Z01.812 Encounter for preprocedural laboratory examination

== ENCOUNTER 2019-06-17 20:04 | Observation (INO) | payer OTHER ==
[~2019-06-17] VITALS: Ht 157.5 cm; Wt 43.5 kg
--- NOTE | ~2019-06-17 | HEMODYNAMI ---
PATIENT:GIDEON SHOEMAKER MEDICAL RECORD: [id number] : 40 LOCATION:[facility] D.[address] [facility]# [id number] ADMISSION DATE: 06/17/19 Generatedon:06/18/201914:34 Patient name: GIDEON SHOEMAKER Patient #: [id number] : 1940 Date of study: 06/18/2019 Page: Of Hemodynamic Procedure Report Patient Data Patient Demographics Procedure consent was obtained First Name: GIDEON Gender: Female Last Name: SAHARA : 1940 Middle Initial: M Age: 78 year(s) Patient #: [id number] Race: SSN: [id number] Additional ID: [id number] Contact details Address: [address] [place] [address] State: [place]: [facility] [place] code: [address] Past Medical History Allergies: No known allergies Admission Admission Data Admission Date: 06/17/2019 Admission Time: 21:42 Arrival Date: 06/18/2019 Arrival Time: 0:00 Admit Source: Other Insurance Payor: Private Room #: D.2118 health insurance [facility] #: [id number] Height (in.): 62 BSA: 1.4 (m2) Height (cm.): 157.48 BMI: 17.58 (kg/m2) Weight (lbs.): 96.12 Weight (kg.): 43.6 Lab Results Lab Result Date: 06/18/2019 Lab Result Time: 0:00 Biochemistry Name Units Result Min Max BUN mg/dl 9 --(*---)-- 7 18 Creatinine mg/dl 0.9 --(-*--)-- 0.6 1.3 CBC Name Units Result Min Max Hematocrit % 44.6 --(*---)-- 42 54 Hemoglobin g/dl 15.5 --(-*--)-- 13.5 17.5 Procedure Procedure Types Cath Procedure Diagnostic Procedure LHC LHC w/Coronaries w/Grafts Sedation Charges Moderate Sedation up to 15 minutes Procedure Description Procedure Date Procedure Date: 06/18/2019 Procedure Start Time: 13:55 Procedure End Time: 14:31 Procedure Staff Name Function Dejon Cardona MD Performing Physician Faye Albarran RT Monitor Kendall Johnson RT Scrub Kendra Smith RT Scrub Sylvester Mcintosh RN Nurse Indication Angina Procedure Data Cath Procedure Fluoroscopy Diagnostic fluoroscopy Total fluoroscopy Time: 6.9 time: 6.9 min min Diagnostic fluoroscopy Total fluoroscopy dose: 396 dose: 396 mGy mGy Contrast Material Contrast Material Type Amount (ml) Isovue 300 116 Entry Location Entry Primary Successful Side Size Upsize Upsize Entry Closure Succes sful Closure Location (Fr) 1 (Fr) 2 (Fr) Remarks Device Remarks Femoral Left 5 Fr Exoseal artery Estimated blood loss: 5 ml Diagnostic catheters Device Type Used For End Catheter Placement MULTIPACK JL 4.0 5Fr Left Coronary catheter Angiography MULTIPACK 3DRC 5Fr Right Coronary catheter Angiography MULTIPACK Pigtail 5 Fr Multi-vessel catheter Angiography Procedure Complications No complications Procedure Medications Medication Administration Route Dosage Oxygen etCO2 Nasal cannula 2 l/min Lidocaine 2% added to field 20 Heparin Flush Bag added to field 2 bags (1000units/500ml NS) 0.9% NaCl I.V. 100 ml/hr Versed I.V. 1 mg Fentanyl I.V. 50 mcg Versed I.V. 1 mg Fentanyl I.V. 50 mcg Hemodynamics Rest BSA: 1.4 (m2) O2 Consumption: Estimated: 123.84 (ml/min) O2 Consumption indexed: Estimated:88.46 (ml/min/m) Heart Rate: 65 (bpm) Pressure Samples Time Site Value (mmHg) Purpose Heart Use Rate(bpm) 14:27 LV 111/-4,-1 Snapshot 69 Gradients Valve Time Site Site Mean SEP/DFP Peak To Heart Use 1 2 (mmHg) (sec/min) Peak Rate (mmHg) (bpm) Aortic 14:27 LV AO 72 Snapshots Pre Cath Intra NCS Post Cath Vital Signs Time Heart Resp SPO2 etCO2 NIBP Rhythm Pain Sedation Rate (ipm) (%) (mmHg) (mmHg) Status Level (bpm) 13:52:53 65 15 100 8.9 130/59(98) NSR 0 (11) 10(A) , No pain 13:57:11 64 14 100 14.2 118/58(98) NSR 0 (11) 10(A) , No pain 14:01:25 67 15 100 0 109/53(81) NSR 0 (11) 10(A) , No pain 14:05:33 73 18 100 21.6 112/65(87) NSR 0 (11) 10(A) , No pain 14:09:40 71 13 100 12.7 123/69(83) NSR 0 (11) 10(A) , No pain 14:13:54 68 18 100 0 119/58(76) NSR 0 (11) 10(A) , No pain 14:18:06 68 18 100 25.4 118/58(81) NSR 0 (11) 10(A) , No pain 14:22:18 68 17 100 0 112/56(76) NSR 0 (11) 9(A) , No pain 14:26:28 69 14 100 0 107/53(80) NSR 0 (11) 9(A) , No pain 14:30:36 69 13 100 0 109/52(81) NSR 0 (11) 9(A) , No pain Medications Time Medication Route Dose Verified Delivered Reason Notes Eff ectiveness by by 13:47:09 Oxygen etCO2 2 Dejon Phan used for Nasal l/min St Ryan Mcintosh RN procedure cannula 13:47:16 Lidocaine 2% added 20ml Dejon Ashford for local to vial [facility] anesthetic field MD GORDON 13:47:22 Heparin Flush added 2 Dejon Dejon used for Bag to bags [facility] procedure (1000units/500ml field MD GORDON NS) 13:47:32 0.9% NaCl I.V. 100 Dejon Phan Per ml/hr St Ryan Mcintosh RN physician 13:51:43 Versed I.V. 1 mg Dejon Phan for [facility] Ryan Mcintosh RN sedation 13:51:49 Fentanyl I.V. 50 Dejon Phan for mcg [facility] Ryan Mcintosh RN sedation 13:55:57 Versed I.V. 1 [address]an for [facility] Ryan Mcintosh RN sedation 14:03:46 Fentanyl I.V. 50 De[address] for mcg [facility] Ryan Mcintosh RN sedation Procedure Log Time Note 13:10:10 Sylvester Mcintosh RN sent for patient. Start room use. 13:23:13 Informed consent obtained and on chart 13::19 Lab Result : Hematocrit 44.6 % 13:: Lab Result : BUN 9 mg/dl 13::19 Lab Result : Creatinine 0.9 mg/dl 13::19 Lab Result : Hemoglobin 15.5 g/dl 13:33:49 Admit Source: Other 13:34:08 Procedure Status Urgent Heart Cath (IP). 13:34:17 Time tracking: Regular hours (M-F 7:00 - 5:00) 13:34:20 Plan of Care:Hemodynamics will remain stable., Cardiac rhythm will remain stable., Comfort level will be maintained., Respiratory function will remain adequate., Patient/ family verbilizes understanding of procedure., Procedure tolerated without complication., Recovers from procedure without complications.. 13:37:23 Insurance Payor : Private [employer] insurance 13:37:51 Arrival Date: 06/18/2019 12:00:00 AM 13:38:00 Patient Height : 62 inches 13:38:06 Patient Weight : 96.12 lbs 13:38:50 Indication : Angina 13:39:08 Diagnostic Cath Status : Urgent 13:39:19 ACC Patient presents with Unstable Angina CCS Anginal Class 4--Inability to carry out any physical activity w/o angina. Angina may occur at rest. 13:39:36 ACCPatient has been prescribed/administered the following anti-anginal medication within the last 2 weeks: ARB 13:39:53 Patient received from Med II to CCL 2 Alert and oriented. Tansferred to table in Supine position. 13:39:54 Warm blankets applied, and muriel hugger turned on for patient comfort. 13:39:54 Correct patient and procedure confirmed by team. 13:39:55 ECG and BP/O2 sat monitors applied to patient. 13:40:13 IV CATHETER 22g opened to sterile field. 13:40:25 IV Extension Set opened to sterile field. 13:40:42 IV left forearm D/C'd due to infiltration. 13:40:50 IV started by Sylvester Mcintosh RN inright forearm with a 22 gauge IV catheter with 0.9% NaCl at KVO. 13:41:35 H&P Date Dictated: 06/17/2019 Within 30 days and on chart.. 13:44:57 Pre-procedure instructions explained to patient. 13:44:58 Pre-op teaching completed and patient verbalized understanding. 13:44:59 Family in waiting room. 13:45:01 Patient NPO since Midnight. 13:45:03 Is the patient allergic to Iodine/contrast media? No. 13:45:05 Was the patient premedicated? No 13:45:29 Is patient on blood thinner?No 13:45:38 Patient diabetic? No. 13:45:41 Previous problem with sedation/anesthesia? No ? 13:45:42 Snore? Yes 13:45:43 Sleep apnea? No 13:45:44 Deviated septum? No 13:45:45 Opens mouth fully? Yes 13:45:45 Sticks out tongue? Yes 13:45:49 Airway obstruction? Yes COPD 13:45:52 Dentures? No ? 13:46:28 Pre procedure: right dorsailis pedis pulse 1+ Palpable, but thready & weak; easily obliterated 13:46:32 Pre procedure: left dorsailis pedis pulse 1+ Palpable, but thready & weak; easily obliterated 13:46:35 Patient pain scale 0/10 ?. 13:46:40 Lab results completed and on chart. 13:46:42 Right groin area was prepped with chlora-prep and draped in sterile fashion 13:46:43 Alarms reviewed by R. N. 13:46:44 Sharps counted by scrub and verified by R.N. 13:46:46 Physician arrived 13:46:46 --------ALL STOP TIME OUT------ 13:46:47 Final Timeout: patient, procedure, and site verified with staff and physician. All members of the team are in agreement. 13:46:48 Right groin site verified by team. 13:46:51 Fire Safety Assessment: A--An alcohol-based skin anteseptic being used preoperatively., C--Open oxygen or nitrous oxide is being used., D--An ESU, laser, or fiber-optic light is being used. 13:46:54 Physical assessment completed. ASA score P 2 - A patient with mild systemic disease as per Dejon Cardona MD. 13:47:09 Oxygen 2 l/min etCO2 Nasal cannula was administered by Sylvester Mcintosh RN; used for procedure; 13:47:16 Lidocaine 2% 20ml vial added to field was administered by Dejon Cardona MD; for local anesthetic; 13:47:18 2) 60-89 Mildly reduced kidney function, and other findings (as for stage 1) point to kidney disease. 13:47:22 Heparin Flush Bag (1000units/500ml NS) 2 bags added to field was administered by Dejon Cardona MD; used for procedure; 13:47:32 0.9% NaCl 100 ml/hr I.V. was administered by Sylvester Mcintosh RN; Per physician; 13:47:43 Maximum allowable contrast dose (3.7 X eGFR X 0.75)177 ml. 13:47:46 Sedation plan: IV Moderate Sedation Medication:Versed, Fentanyl 13:51:36 Vital chart was started 13:51:43 Versed 1 mg I.V. was administered by Sylvester Mcintosh RN; for sedation; 13:51:49 Fentanyl 50 mcg I.V. was administered by Sylvester Mcintosh RN; for sedation; 13:52:47 Procedure started. 13:52:47 Full Disclosure recording started 13:53:19 Baseline sample Acquired. 13:55:35 Local anesthetic to right femoral artery with Lidocaine 2% by Dejon Cardona MD.INITIAL ACCESS ONLY 13:55:57 Versed 1 mg I.V. was administered by Sylvester Mcintosh RN; for sedation; 14:03:46 Fentanyl 50 mcg I.V. was administered by Sylvester Mcintosh RN; for sedation; 14:05:50 MICROPUNCTURE 4FR Cook (I28053) opened to sterile field. 14:06:13 Left groin area was prepped with chlora-prep and draped in sterile fashion 14:06:22 Local anesthetic to left femerol artery with Lidocaine 2% by Dejon Cardona MD.ADDITIONAL ACCESS 14:08:46 Access obtained with 4Fr micropunture. 14:08:56 A 5 Fr sheath was inserted into the Left Femoral artery 14:12:08 Use device set Femoral Dx 14:12:09 ACIST Syringe (05152) opened to sterile field. 14:12:10 Bag Decanter (2002) opened to sterile field. 14:12:10 Medline Cath Pack ([id number]) opened to sterile field. 14:12:12 ACIST Hand Control (33732) opened to sterile field. 14:12:12 ACIST Manifold (88564) opened to sterile field. 14:12:13 DIAGNOSTIC Multipack 5Fr catheter set (OF3156) opened to sterile field. 14:12:14 Tegaderm 4 x 4 (1626W) opened to sterile field. 14:12:15 EMERALD Guide Wire (502-416) opened to sterile field. 14:12:16 SHEATH 5FR [place] (YWO741) opened to sterile field. 14:12:21 A MULTIPACK JL 4.0 5Fr catheter was advanced over the wire and used for Left Coronary Angiography. 14:12:35 LCA angiography performed. 14:12:38 Injector settings: Ml/sec: 3, Volume: 6, 14:16:27 Catheter removed. 14:17:12 GLIDE WIRE ANGLE 260cm (JR6655) opened to sterile field. 14:17:41 TORQUE DEVICE PLASTIC .038 ( TD01) opened to sterile field. 14:22:47 A MULTIPACK 3DRC 5Fr catheter was advanced over the wire and used for Right Coronary Angiography. 14:23:37 RCA angiography performed. 14:23:44 ACCDominant side:Left 14:25:00 SVG to Ramus angiography performed. 14:25:39 Catheter removed. 14:25:49 A MULTIPACK Pigtail 5 Fr catheter was advanced over the wire and used for Multi-vessel Angiography. 14:27:13 LV hemodynamics recorded. 14:27:14 LV gram done using CAMPOS 14:27:16 Injector settings: Ml/sec: 5, Volume: 15, 14:27:23 EF : 60 % 14:27:33 Catheter removed. 14:27:48 EXOSEAL 5Fr (EX500) opened to sterile field. 14:28:09 Sheath removed intact; hemostasis achieved with Exoseal to the Left Femoral artery. 14:28:11 Procedure ended.(Physican Out) 14:29:07 Fluoroscopy time 06.90 minutes. 14:: Flurop Dose total: 396 14:: Fluoroscopy dose: 396 mGy 14:29:19 Dose Area Product 68206 mGy/cm. 14:29:23 Contrast amount:Isovue 300 116ml. 14:29:25 Sharps counted by scrub and verified by R.N. 14:29:28 Insertion/operative site no bleeding no hematoma. 14:29:32 Post-op/insertion site Left Femoral artery dressed using a 4 x 4 and Tegaderm. 14:30:15 Post Procedure Pulses reassessed and unchanged 14:30:18 Post procedure rhythm: unchanged. 14:30:21 Estimated blood loss: 5 ml 14:30:23 Post procedure instruction explained to patient.Patient verbalizes understanding. 14:30:23 Patient needs reinforcement of post procedure teaching. 14:30:52 Procedure type changed to Cath procedure, Diagnostic procedure, LHC, LHC w/Coronaries w/Grafts, Sedation Charges, Moderate Sedation up to 15 minutes 14:30:54 Procedure and supply charges have been captured, reviewed, submitted and are correct. 14:31:00 Procedure Complication : No complications 14:31:03 Vital chart was stopped 14:31:04 See physician's report for complete and final results. 14:31:08 Report given to [facility]. 14:31:11 Patient transfered to [facility] with Stretcher. 14:31:15 Procedure ended. 14:31:15 Full Disclosure recording stopped 14:31:19 End room use (Document Last) Device Usage Item Name Manufacture Quantity Catalog Hospital Part Current Minima l Lot# / Number Charge Number Stock Stock Serial# Code IV CATHETER B. Swain 1 [id number] 243556 077828 622481 5 22g IV Extension Hospira 1 63112-78 720209 92405 617278 5 Set MICROPUNCTURE Cook Medical 1 [id number] 931580 033406 401944 5 4FR [employer]CarsClub (I98631) ACIST Syringe Acist 1 61653 488150 354145 546664 20 (65181) Medical Systems Inc Bag Decanter Microtek 1 2001S 340042 19722 329769 5 (2001S) Medical Inc. Medline Cath Medline 1 [id number] 153864 84265 335098 5 Pack ([id number]) ACIST Hand Acist 1 60955 956383 153728 693446 5 Control Medical (74739) Systems Inc ACIST Acist 1 84001 963911 332761 938444 5 Manifold Medical (09172) Systems Inc DIAGNOSTIC Cardinal 1 EG1161 577986 07017 294546 30 Multipack 5Fr Health catheter set (OJ3156) Tegaderm 4 x 3M 1 1626W 411248 366398 582030 5 4 (1626W) EMERALD Guide Cardinal 1 502-455 282083 510792 759322 5 Wire Health (502455) SHEATH 5FR Terumo 1 VZW081 909732 828232 590805 5 [place] (VML901) MULTIPACK JL Cardinal 1 316632 5 4.0 5Fr Health catheter GLIDE WIRE Terumo 1 CH3278 401255 613164 999385 5 ANGLE 260cm (KB1642) TORQUE DEVICE [place] 1 TD01 302154 016487 134767 5 PLASTIC .038 Scientific ( TD01) MULTIPACK Cardinal 1 099632 5 3DRC 5Fr Health catheter MULTIPACK Cardinal 1 832045 5 Pigtail 5 Fr Health catheter EXOSEAL 5Fr Cardinal 1 EX500 917180 632940 587811 10 (EX500) Health Signature Audit Eidson Stage Time Signature Unsigned Intra-Procedure 06/18/2019 Faye Albarran 2:34:48 PM RT(R) Signatures Performing Physician : Signature : Dejon Cardona MD Date : Time : Monitor : Faye Albarran RT Signature : Date : Time : Nurse : Sylvester Mcintosh RN Signature : Date : Time : [facility] [address] [address]
[~2019-06-17 20:04] MED LIST changes: +ALBUTEROL SULF8.5 GM INH; +PLAVIX75 MG PO
[2019-06-17] MEDS ORDERED: COZAAR50 MG PO (20:08)
[2019-06-17 20:13] VITALS: BP 176/87
[2019-06-17 20:33] LABS: BASOPHILS 0.1 % (0-2); EOSINOPHILS 0.1 % (0-7); HEMATOCRIT 44.6 % (36.0-48.0); HEMOGLOBIN 15.5 g/dL (12-16); IMMATURE GRANULOCYTES 0.2 % (0-5); LYMPHOCYTES 10.3 % (15-50); MCHC 34.8 g/dL (31.0-37.0); MCV 86.4 fL (80.0-100.0); MEAN PLATELET VOLUME 9.7 fL (7.4-10.4); MONOCYTES 3.1 % (2-11); NEUTROPHILS 86.2 % (40-80); PLATELET COUNT 190 10x3/uL (130-400); RBC 5.16 10x6/uL (4.00-5.40); RDW 12.7 % (11.5-14.5); WBC 8.5 10x3/uL (4.8-10.8)
[2019-06-17 20:46] LABS: ALBUMIN 3.9 g/dL (3.4-5.0); ALKALINE PHOSPHATASE 106 U/L (46-116); ALT (SGPT) 9 U/L (10-68); CALC OSMOLALITY 264 mosm/kg (275-300); CARBON DIOXIDE 26.6 mmol/L (21.0-32.0); CHLORIDE - SERUM 98 mmol/L (98-107); CREATININE - SERUM 0.9 mg/dL (0.6-1.3); GLUCOSE 125 mg/dL (74-106); POTASSIUM - SERUM 4.1 mmol/L (3.5-5.1); PROTEIN - SERUM 7.2 g/dL (6.4-8.2); SODIUM 132 mmol/L (136-145); UREA NITROGEN 9 mg/dL (7-18); eGFR NON AFRICAN AMERICAN 64 mL/min (90-120)
[2019-06-17 21:03] LABS: AMYLASE - SERUM 54 U/L (25-115); CKMB 3.3 U/L (0.0-3.6); CREATINE KINASE 62 UL (21-215); LIPASE 106 U/L (73-393); MAGNESIUM - SERUM 2.1 mg/dL (1.8-2.4)
[2019-06-17 21:09] LABS: TROPONIN-I 0.247 ng/mL (0.000-0.060)
--- NOTE | 2019-06-17 21:21 | NUR ---
PLAN OF CARE DISCUSSED WITH PT AND FAMILY. PT REPORTS CP 05/16 AT THIS TIME. RN ADMINISTERED 1 NTG. WILL CONTINUE TO MONITOR.
--- NOTE | 2019-06-17 22:22 | NUR ---
RN ASSISTED PT TO RESTROOM. URINE SPECIMEN SENT TO LAB.
[2019-06-17 22:29] LABS: APPEARANCE CLEAR (CLEAR); BILIRUBIN NEGATIVE (NEGATIVE); COLOR YELLOW (YELLOW); GLUCOSE NEGATIVE (NEGATIVE); KETONE SMALL mg/dL (NEGATIVE); NITRITE NEGATIVE (NEGATIVE); PROTEIN NEGATIVE (NEGATIVE); SPECIFIC GRAVITY 1.015 (1.005-1.020); UROBILINOGEN NORMAL (NORMAL)
[2019-06-17 23:40] VITALS: BP 123/66; BMI 17.6
[2019-06-18 02:45] LABS: CREATINE KINASE 53 UL (21-215)
[2019-06-18 02:49] LABS: TROPONIN-I 0.439 ng/mL (0.000-0.060)
[2019-06-18 06:17] LABS: APTT 28.2 SECONDS (22.8-39.4); INR 1.07 (0.85-1.17); PROTIME 13.8 SECONDS (11.6-15.0)
[2019-06-18 08:25] VITALS: BP 123/65
[2019-06-18 08:57] LABS: BASOPHILS 0.1 % (0-2); EOSINOPHILS 0.2 % (0-7); HEMOGLOBIN 13.3 g/dL (12-16); IMMATURE GRANULOCYTES 0.2 % (0-5); LYMPHOCYTES 14.3 % (15-50); MCH 29.2 pg (26.0-34.0); MCHC 34.1 g/dL (31.0-37.0); MCV 85.7 fL (80.0-100.0); MEAN PLATELET VOLUME 9.9 fL (7.4-10.4); MONOCYTES 6.3 % (2-11); NEUTROPHILS 78.9 % (40-80); PLATELET COUNT 212 10x3/uL (130-400); RBC 4.55 10x6/uL (4.00-5.40); RDW 12.9 % (11.5-14.5); WBC 8.5 10x3/uL (4.8-10.8)
--- NOTE | 2019-06-18 09:00 | NUR ---
ALERT AND ORIENTED X4. RESTING IN BED. CONSENTS FOR RESEARCH AND DEVELOPMENT RESEARCHER SIGNED ON CHART. DENIES PAIN OR SOB. CONTINUE PLAN OF CARE AND SAFETY PRECAUTIONS.
[2019-06-18 09:22] LABS: CALC OSMOLALITY 265 mosm/kg (275-300); CALCIUM 10.2 mg/dL (8.5-10.1); CHLORIDE - SERUM 100 mmol/L (98-107); CKMB 2.8 U/L (0.0-3.6); CREATINE KINASE 57 UL (21-215); CREATININE - SERUM 0.9 mg/dL (0.6-1.3); GLUCOSE 93 mg/dL (74-106); POTASSIUM - SERUM 4.6 mmol/L (3.5-5.1); SODIUM 134 mmol/L (136-145); UREA NITROGEN 8 mg/dL (7-18); eGFR NON AFRICAN AMERICAN 64 mL/min (90-120)
[2019-06-18 09:26] LABS: TROPONIN-I 0.252 ng/mL (0.000-0.060)
[2019-06-18 11:43] VITALS: BP 100/54
[2019-06-18 14:14] VITALS: Ht 157.5 cm; Wt 43.5 kg
--- NOTE | 2019-06-18 14:32 | CN ---
PATIENT NAME:GIDEON SHOEMAKER MEDICAL RECORD: [id number] : 40 LOCATION:DMaye D.2118 ADMIT DATE: 06/17/19 ACCOUNT: [id number] CONSULTING PHYSICIAN: FABIOLA CARABALLO MD REFERRING PHYSICIAN: FABIOLA CARABALLO MD DATE OF CONSULTATION: 06/18/2019 HISTORY OF PRESENT ILLNESS: A 78-year-old female with a known history of coronary artery disease, status post intervention, most recent left main intervention with a protected circumflex via BiPAP graft in January of this year by myself. She has a history of persevered diastolic dysfunction at that time. She was admitted with 2-3 day history of progressive nausea, emesis, dyspnea on exertion, some wheezing. She does have underlying obstructive pulmonary disease with ongoing smoking and not on home O2, presented to the ER, found to have elevated cardiac enzymes consistent with NSTEMI. We are asked to see her concerning her cardiovascular status. PAST MEDICAL HISTORY: Includes: 1. History of obstructive pulmonary disease. 2. Hypertension. 3. Dyslipidemia. MEDICATIONS: Include aspirin 81 mg p.o. daily, Cozaar 50 mg p.o. every day. ALLERGIES: AMOXICILLIN. SOCIAL HISTORY: Smokes about a pack a day. She is typically able to take care of all her ADLs, was trying to walk on a regular basis prior to admission. REVIEW OF SYSTEMS: The patient reports easy bruising but reports no swollen glands. The patient reports no fever, no night sweats, no significant weight gain, no significant weight loss. No significant exercise tolerance. The patient reports no dry eyes, no irritation, no vision change. Patient reports no difficulty hearing and no ear pain. Patient reports no frequent nose bleeds or nose and sinus problems. Patient reports on arm pain on exertion. No shortness of breath while lying down. No history of heart murmur. Patient reports no cough, no wheezing or coughing up blood. Patient reports no abdominal pain, no vomiting. Normal appetite. No diarrhea and not vomiting blood. No nausea and no constipation. Patient reports no incontinence. No difficulty urinating. No hematuria. No increased frequency. Patient reports no muscle aches. No weakness, no arthralgias, no back pain. No swelling of the extremities. Patient reports no abnormal mole, no jaundice, no rashes. Reports no loss of consciousness. No weakness and no numbness. No seizures, dizziness, or headaches. The patient reports no depression, no sleep disturbance, feeling safe in a relationship and no alcohol abuse. Patient reports on fatigue. Reports no runny nose or sinus pressure. No itching, no hives, and no frequent sneezing. PHYSICAL EXAMINATION: GENERAL: Pleasant female in no acute distress. Typical body habitus for obstructive pulmonary disease. VITAL SIGNS: Blood pressure 123/65, pulse 70 and regular. HEENT: Normocephalic, atraumatic. NECK: No bruits noted. HEART: Tones somewhat distant. II/ systolic ejection murmur. CONSULT REPORT [id number] GIDEON SHOEMAKER LUNGS: Prolonged respiratory phase, few expiratory wheezes. ABDOMEN: Soft, nontender. EXTREMITIES: Pulses 2+ with no edema. DIAGNOSTIC DATA: ECG shows inferior lateral ST-T changes, LVH versus ischemia. IMPRESSION: NSTEMI. We will plan for angiography, intervention based on the above. TRANSINT:[id number] Voice Confirmation ID: [id number] DOCUMENT ID: [id number] FABIOLA CARABALLO MD at 1432 CC: [id number] DICTATION DATE: 06/18/19 0855 FRONT END SOFTWARE ENGINEER: 06/18/19 0908 ADM IN [place] [id number] [place] [address]
--- NOTE | 2019-06-18 14:50 | NUR ---
ARRIVES BACK FROM TRACK REPAIR LABORER VIA BED. FAMILY AT BEDSIDE. LT GROIN DRESSING CLEAN DRY INTACT. FREE FROM BLEEDING. FREE FROM HEMATOMA. BP-125/66, HR-75, R-14, O2 @92% WITH 2LNC. PULSE PALPABLE BILATERALLY. CONTINUE PLAN OF CARE AND SAFETY PRECAUTIONS.
[2019-06-18] MEDS ORDERED: ZEBETA 5 MG TAB5 MG PO (15:07)
--- NOTE | 2019-06-18 17:51 | NUR ---
ALERT AND ORIENTED X4. AMULATES TO RESTROOM. LT GROIN DRESSING CLEAN DRY INTACT. FREE FROM BLEEDING. FREE FROM HEMATOMA. PULSE PALPABLE BILATERALLY. DISCHARGE INSTRUCTIONS GIVEN VERBALLY AND WRITTEN. DC LT WRIST IV TIP INTACT. DC RT AC IV TIP INTACT. ESCORT TO RIDE VIA WHEELCHAIR. REMAINS FREE FROM INJURY.
--- NOTE | 2019-06-19 09:05 | MORECARE ---
CASE MANAGEMENT DISCHARGE SUMMARY PATIENT: GIEDON SHOEMAKER UNIT: [id number] ADM DATE: 06/17/19 AGE: 78 : 40 SEX: F ROOM/BED: D.0148 AUTHOR: GIOVANNA HAMMER PHYSICIAN: REFERRING PHYSICIAN: FABIOLA CARABALLO MD DATE OF SERVICE: 06/19/19 Discharge Plan Patient Name: GIDEON SHOEMAKER Facility: [facility]:[place] : 1940 Planned Disposition: Home Anticipated Discharge Date: 06/18/19 Discharge Date: 06/18/2019 Expected LOS: 1 Initial Reviewer: [email or web address] Initial Review Date: 06/19/2019 Generated: 06/19/19 10:05 am Patient Name: GIDEON SHOEMAKER Page [id number] at 0905 All edits/amendments must be made on the electronic document DICTATION DATE: 06/19/19904 OPTIONS TRADER: JADON 06/19/19904 RPT#: [id number] DC DATE:06/18/19 STATUS: DIS IN [facility] [address] [place] [address] END OF REPORT
--- NOTE | 2019-06-19 09:29 | EC ---
PATIENT:GIDEON SHOEMAKER DATE OF SERVICE: 06/17/19 SEX: F MEDICAL RECORD: [id number] DATE OF : 40 LOCATION:D. D.211 AGE OF PATIENT: 78 ADMISSION DATE: 06/17/19 REFERRING PHYSICIAN: INTERPRETING PHYSICIAN: FABIOLA CARABALLO MD ECHOCARDIOGRAM REPORT ECHO CHARGES 4 ECHO COMPLETE Date: 06/18/19 CLINICAL DIAGNOSIS: CT ECHOCARDIOGRAPHIC MEASUREMENTS (adult normal given) AC root (d.<3.7cm) 2.8 cm LV Septum d (<1.2 cm> 1.1 cm Valve Excursion 1.6 cm LV Septum (systole) 1.6 cm Left Atria (s.<4.0cm> 3.2 cm LVPW d(<1.2cm) 1.1 cm RV (d.<2.3cm) 2.0 cm LVPW (sytole) 1.4 cm LV diastole(<5.6CM) 3.6 cm MV E-F(>70mm/sec) cm LV systole 1.9 cm LVOT Diameter 1.5 cm MV exc.(>10mm) cm Est.ejection fraction (50-75%) % DOPPLER: LVIT cm/sec A 53.0 cm/sec E 56.0 cm/sec LA cm/sec RVSP 19.4 mmHg LVOT 103 cm/sec AOP1/2T m/s Asc. Ao 127 cm/sec RVOT 69.0 cm/sec RA cm/sec PA 90.0 cm/sec AV Gradient Peak 6.4 mmHg AV Mean 2.9 mmHg AV Area 1.5 cm MV Gradient Peak 3.8 mmHg MV Mean 1.1 mmHg MV Area cm COMMENTS: Air Export Coordinator: 1 CRISTIN HERNANDEZOE Block Operator: 3 Dr. Gregory TAPE# PACS Pericardial Effusion N DATE OF SERVICE: Adequate 2D, color flow, spectral Doppler, and M-mode. No LVH. LV internal dimensions are normal. LV appears to be mildly globally hypo with EF lower limits of normal, mildly reduced at 45% to 50%. Aortic valve sclerosis without stenosis by Doppler interrogation. Left atrium normal at 3.2 cm. Mitral valve shows no prolapse. Trace MR. Right-sided chambers are grossly normal. Mild TR on color flow imaging. TRANSINT:[id number] Voice Confirmation ID: [id number] DOCUMENT ID: [id number] ECHOCARDIOGRAM REPORT [id number] GIDEON SHOEMAKER,FABIOLA Lee MD at 0929 CC: [id number] DICTATION DATE: 06/19/1944 POSTPARTUM NURSE: 06/19/19 0855 DIS IN 06/18/19 [place] [id number] [place] [id number]
--- NOTE | 2019-06-19 09:29 | OP ---
PATIENT NAME: GIDEON SHOEMAKER MEDICAL RECORD: [id number] :40 LOCATION:D.M2 D.2118 ADMISSION DATE:06/17/19 SURGEON: FABIOLA CARABALLO MD DATE OF OPERATION: 06/18/2019 PROCEDURES: Left heart catheterization, selective coronary angiography, and right radial artery approach. CATHETERS: A 5-Cook Islander sheath, 5/4 left and right Katie, and 5/4 pig. The procedure was well tolerated. The patient was returned to [place]. Sheath was removed. ExoSeal device was placed. FINDINGS: Left ventriculography in 30-degree CAMPOS view; normal wall motion. Normal systolic function. CORONARY ANATOMY: LEFT MAIN: Area of previously placed stent is widely patent. It gives rise to the LAD. Free of disease. CIRCUMFLEX: Jailed by the placed stent. There is a vein graft to high OM ramus that is widely patent. RIGHT CORONARY: Slightly occluded and fills via exew-ie-zbdgy collaterals. IMPRESSION: Normal LV wall motion. Perhaps transient occlusion of the proximal circ, although distal circ is protected by grafts. Medical management only at this point. TRANSINT:[id number] Voice Confirmation ID: [id number] DOCUMENT ID: [id number] FABIOLA CARABALLO MD at 0929 CC: [id number] DICTATION DATE: 06/18/19 143 PATCH SETTER: 06/18/19 1553 DIS IN 06/18/19 [facility] [address] [place] [id number]
== END 2019-06-18 17:54 | disposition home or self-care (01) ==
LOC: D.ER 20:04 → D.M2 21:42 → OBSVTIME 21:42 → D.M2 21:42
PROVIDERS: Emergency Medicine; ADMIT Internal Medicine Interventional Cardiology; ATTEND Internal Medicine Interventional Cardiology
DX: I21.4 Non-ST elevation (NSTEMI) myocardial infarction (principal); I10 Essential (primary) hypertension; E78.5 Hyperlipidemia, unspecified; F17.200 Nicotine dependence, unspecified, uncomplicated

== ENCOUNTER 2019-06-23 18:02 | Emergency (ER) | payer OTHER ==
[~2019-06-23] VITALS: Ht 157.5 cm; Wt 43.6 kg
[~2019-06-23 18:02] MED LIST changes: +COZAAR50 MG PO; +ZEBETA 5 MG TAB5 MG PO
[2019-06-23 18:17] VITALS: Ht 157.5 cm; Wt 43.6 kg
[2019-06-23 19:55] LABS: BASOPHILS 0.3 % (0-2); EOSINOPHILS 2.3 % (0-7); HEMATOCRIT 37.1 % (36.0-48.0); HEMOGLOBIN 12.5 g/dL (12-16); IMMATURE GRANULOCYTES 0.1 % (0-5); LYMPHOCYTES 18.8 % (15-50); MCH 29.7 pg (26.0-34.0); MCHC 33.7 g/dL (31.0-37.0); MCV 88.1 fL (80.0-100.0); MONOCYTES 7.4 % (2-11); NEUTROPHILS 71.1 % (40-80); PLATELET COUNT 199 10x3/uL (130-400); RBC 4.21 10x6/uL (4.00-5.40); WBC 7.8 10x3/uL (4.8-10.8)
[2019-06-23 20:05] LABS: APTT 27.4 SECONDS (22.8-39.4); INR 1.04 (0.85-1.17); PROTIME 13.1 SECONDS (11.6-15.0)
[2019-06-23 20:12] LABS: ALBUMIN 3.5 g/dL (3.4-5.0); ALKALINE PHOSPHATASE 99 U/L (46-116); ALT (SGPT) 14 U/L (10-68); CALC OSMOLALITY 276 mosm/kg (275-300); CALCIUM 10.5 mg/dL (8.5-10.1); CARBON DIOXIDE 26.9 mmol/L (21.0-32.0); CHLORIDE - SERUM 104 mmol/L (98-107); CREATININE - SERUM 0.7 mg/dL (0.6-1.3); GLUCOSE 89 mg/dL (74-106); POTASSIUM - SERUM 3.9 mmol/L (3.5-5.1); PROTEIN - SERUM 6.3 g/dL (6.4-8.2); SODIUM 140 mmol/L (136-145); UREA NITROGEN 10 mg/dL (7-18); eGFR NON AFRICAN AMERICAN 86 mL/min (90-120)
[2019-06-23 20:28] VITALS: BP 136/68
== END 2019-06-23 20:29 | disposition home or self-care (01) ==
LOC: D.ER 18:02
PROVIDERS: Family Medicine
DX: R10.9 Unspecified abdominal pain (principal)

== ENCOUNTER → 2020-02-12 13:04 | Outpatient (CLI) | payer OTHER ==
[2019-06-23 18:17] VITALS: BMI 17.6
== END | disposition home or self-care (01) ==
LOC: D.RAD 13:04
PROVIDERS: ATTEND Internal Medicine Pulmonary Disease
DX: J44.9 Chronic obstructive pulmonary disease, unspecified (principal)

== ENCOUNTER → 2020-05-26 10:39 | Outpatient (CLI) | payer OTHER ==
[2019-06-23 18:17] VITALS: BMI 17.6
== END | disposition home or self-care (01) ==
LOC: D.LAB 10:23
PROVIDERS: ATTEND Internal Medicine Pulmonary Disease
DX: Z11.59 Encounter for screening for other viral diseases (principal)

== ENCOUNTER → 2020-05-28 12:24 | Outpatient (CLI) | payer OTHER ==
[2019-06-23 18:17] VITALS: BMI 17.6
== END | disposition home or self-care (01) ==
LOC: D.RAD 05-09 13:00 → D.RT 05-09 13:00 → D.CT 05-09 13:00 → D.RAD 05-09 13:45 → D.RT 12:24
PROVIDERS: ATTEND Internal Medicine Pulmonary Disease
DX: J32.9 Chronic sinusitis, unspecified (principal); J44.9 Chronic obstructive pulmonary disease, unspecified